=== PATIENT | female | born 1950 | race Caucasian/White ===

== ENCOUNTER 2022-10-05 13:25 | Inpatient (IN) | payer MEDICARE, MEDICAID ==
--- NOTE | 2022-10-05 13:27 | ERPHSYRPT ---
- History of Present Illness Time Seen by Provider: 10/05/22 13:27 Source: patient Exam Limitations: no limitations Physician History: This is an obese 72-year-old white female patient who does not see a primary care provider of any type and has no known medical illnesses other than an allergy to penicillin and presents via EMS with hypertension and shortness of air. Patient states that she has been sick for approximately a week. She has been coughing. She has been exposed to an individual in her home that has flulike symptoms. Patient does ache all over. She has not measured her temperature but does not think she has had a fever. EMS brought her into the e mergency department and they placed Nitropaste on her to bring her blood pressure down to systolic range of 170s. She had a room air oxygenation level on EMS arrival in the 80s. She was also tachycardic. In route to the emergency department, the patient received Nitropaste to the chest, intravenous Solu- Medrol, DuoNeb nebulizer treatment as well as second treatment of Ventolin nebulizer. She is placed on 2 L of oxygen and her oxygenation saturation level is approximately 94 to 96%. Patient denies chest pain. She has no abdominal pain. She has had no vomiting or diarrhea symptoms. I obtained additional history from the paramedics. Patient does smoke 1 pack of cigarettes a day. We did discuss her tobacco abuse and methods to aid in smoking cessation. Timing/Duration: week(s) (1) Activities at Onset: none Severity of Dyspnea-Max: moderate Severity of Dyspnea-Current: moderate Possible Cause: no prior episodes Modifying Factors: Improves With: coughing, exertion (Worsened), oxygen (Improved) Associated Symptoms: cough, wheezing, No chest pain/discomfort Allergies/Adverse Reactions: Penicillins Allergy (Verified 10/05/22 13:28) Home Medications: No Reportable Medications [No Reported Medications] 10/05/22 [History] Travel Risk - International Travel Have you traveled outside of the country in past 3 weeks: No - Coronavirus Screening Symptoms: Cough: New Onset, Shortness of Breath Close contact with a COVID-19 positive Pt in past 14-21 Days: No - Review of Systems Constitutional: Weakness Eyes: No Symptoms Ears, Nose, & Throat: No Symptoms Respiratory: Cough, Dyspnea, Wheezing Cardiac: No Symptoms Abdominal/Gastrointestinal: No Symptoms Genitourinary Symptoms: No Symptoms Musculoskeletal: Arthralgias, Myalgias Skin: No Symptoms Neurological: No Symptoms Psychological: No Symptoms Endocrine: No Symptoms Hematologic/Lymphatic: No Symptoms Immunological/Allergic: No Symptoms All Other Systems: Reviewed and Negative - Past Medical History Pertinent Past Medical History: No - Nursing Vital Signs Nursing Vital Signs: Initial Vital Signs Temperature 98.1 F 10/05/22 13:29 Pulse Rate 94 H 10/05/22 13:29 Respiratory Rate 30 H 10/05/22 13:29 Blood Pressure 172/79 10/05/22 13:29 O2 Sat by Pulse Oximetry 98 10/05/22 13:29 Pain Scale Pain Intensity 4 - Physical Exam General Appearance: moderate distress, alert, anxiety, obese Eye Exam: PERRL/EOMI, eyes nml inspection Ears, Nose, Throat Exam: hearing grossly normal, normal ENT inspection, normal pharynx Neck Exam: normal inspection, non-tender, supple, full range of motion Respiratory Exam: respiratory distress, accessory muscle use, crackles/rales, rhonchi, wheezing, No chest tenderness Cardiovascular/Chest Exam: tachycardia Abdominal/Gastrointestinal Exam: soft, normal bowel sounds, No tenderness Rectal Exam: not done Extremity Exam: non-tender, normal range of motion, pedal edema (Bilateral feet and ankle) Neurologic Exam: alert, oriented x 3, cooperative, chief client officer II-XII nml as tested, sensation nml Skin Exam: normal color, warm, dry Lymphatic Exam: adenopathy SpO2 Interpretation: borderline oxygenation O2 Delivery: Nasal Cannula (2 L oxygen) - Course EKG Interpreted by Me: RATE (158), SVT, NORMAL AXIS, NORMAL INTERVALS, NORMAL QRS, NORMAL ST-T, Other (No acute ischemic changes.) Ordered Tests: Active Orders 24 hr Category Date Time Status EKG-ER Only STAT Care 10/05/22 13:37 Active EKG-ER Only STAT Care 10/05/22 14:23 Active IV Insertion STAT Care 10/05/22 13:37 Active Oxygen-ED Only Nasal Cannula 2 lpm Care 10/05/22 13:37 Active CHEST 1 VIEW (PORTABLE) Stat Exams 10/05/22 13:37 Completed CHEST WITH CONTRAST [CT] Stat Exams 10/05/22 15:43 Completed ABG [ARTERIAL BLOOD GASES] Urgent Lab 10/05/22 13:50 Completed BLOOD CULTURE Stat Lab 10/05/22 14:00 Received CBC W DIFF Stat Lab 10/05/22 14:00 Completed CMP Stat Lab 10/05/22 14:00 Completed D-DIMER QUANTITATIVE Stat Lab 10/05/22 14:00 Completed Lactic Acid Stat Lab 10/05/22 13:50 Completed Whitman Screen Stat Lab 10/05/22 14:00 Completed NT PRO BNP Stat Lab 10/05/22 14:00 Completed TROPONIN Q4H Lab 10/05/22 14:00 Completed TROPONIN Q4H Lab 10/05/22 17:45 Ordered TROPONIN Q4H Lab 10/05/22 21:45 Ordered Transfer Order Routine Transfer 10/05/22 Ordered Medication Summary Generic Name Dose Route Start Last Admin Trade Name Freq PRN Reason Stop Dose Admin Sodium Chloride 500 mls @ 50 mls/hr 10/05/22 15:15 10/05/22 15:57 Sodium Chloride 0.9% 500 Ml IV 11/04/22 15:14 50 mls/hr .Q10H JONATHAN Administration Ceftriaxone Sodium/Dextrose 1 g in 50 mls @ 100 mls/hr 10/05/22 16:47 10/05/22 16:49 Rocephin 1 Gm-D5w 50 Ml Bag IV 10/05/22 17:16 100 mls/hr STAT STA 100 mls/hr Administration Discontinued Medications Generic Name Dose Route Start Last Admin Trade Name Freq PRN Reason Stop Dose Admin Furosemide 40 mg 10/05/22 15:11 10/05/22 15:57 Furosemide 40 Mg/4 Ml Vial IV 10/05/22 15:12 40 mg STAT ONE Administration Furosemide Confirm 10/05/22 15:55 Furosemide 40 Mg/4 Ml Vial Administered 10/05/22 15:56 Dose 40 mg .ROUTE .STK-MED ONE Ceftriaxone Sodium/Dextrose Confirm 10/05/22 16:49 Rocephin 1 Gm-D5w 50 Ml Bag Administered 10/05/22 16:50 Dose 1 g in 50 mls @ ud IV .STK-MED ONE Metoprolol Tartrate 2.5 mg 10/05/22 13:37 10/05/22 14:05 Metoprolol Tartrate 5 Mg/5 Ml Vial IV 10/05/22 13:38 Not Given STAT ONE Metoprolol Tartrate 5 mg 10/05/22 13:51 10/05/22 15:52 Metoprolol Tartrate 5 Mg/5 Ml Vial IV 10/05/22 13:52 Not Given STAT ONE Metoprolol Tartrate Confirm 10/05/22 13:54 Metoprolol Tartrate 5 Mg/5 Ml Vial Administered 10/05/22 13:55 Dose 5 mg IV .STK-MED ONE Potassium Chloride 20 meq 10/05/22 15:10 10/05/22 15:56 Potassium Chloride Tab 10 Meq Tab PO 10/05/22 15:11 20 meq STAT ONE Administration Potassium Chloride Confirm 10/05/22 15:55 Potassium Chloride Tab 10 Meq Tab Administered 10/05/22 15:56 Dose 20 meq PO .STK-MED ONE Lab/Rad Data: Laboratory Result Diagrams 10/05/22 14:00 10/05/22 14:00 Laboratory Results 10/05/22 10/05/22 10/05/22 Range/Units 14:00 14:00 14:00 WBC (4.0-10.5) x10^3/uL RBC (4.1-5.4) x10^6/uL Hgb (12.0-16.0) g/dL Hct (35-47) % MCV (78-100) fL MCH (26-32) pg MCHC (32-36) g/dL RDW (11.5-14.0) % Plt Count (150-450) x10^3/uL MPV (7.5-11.0) fL Gran % (36.0-66.0) % Immature Gran % (Auto) (0.00-0.4) % Nucleat RBC Rel Count (0.00-0.1) % Eos # (Auto) (0-0.5) x10^3/uL Immature Gran # (Auto) (0.00-0.03) x10^3u/L Absolute Lymphs (auto) (1.0-4.6) x10^3/uL Absolute Monos (auto) (0.0-1.3) x10^3/uL Absolute Nucleated RBC (0.00-0.01) x10^3u/L Lymphocytes % (24.0-44.0) % Monocytes % (0.0-12.0) % Eosinophils % (0.00-5.0) % Basophils % (0.0-0.4) % Absolute Granulocytes (1.4-6.9) x10^3/uL Basophils # (0-0.4) x10^3/uL D-Dimer (0.0-0.50) mg/L Puncture Site pCO2 (35-45) mmHg pO2 (75-100) mmHg Base Excess (-2.0-2.0) O2 Saturation (94-100) g/dF ABG pH (7.35-7.45) ABG HCO3 (22-28) ABG O2 Sat (Measured) (95-100) % Joel Test A-a Gradient a/A Ratio Hemoglobin Carboxyhemoglobin (0.0-6.9) % THgb Methemoglobin (1.4-1.5) % Potassium (3.5-5.1) Temperature C POC O2 Flow Rate % Sodium (137-145) mmol/L Chloride (98-107) mmol/L Carbon Dioxide (22-30) mmol/L Anion Gap (5-15) MEQ/L BUN (7-17) mg/dL Creatinine (0.52-1.04) mg/dL Estimated GFR ML/MIN Glucose (74-106) mg/dL Lactic Acid (0.4-2.0) Calcium (8.4-10.2) mg/dL Total Bilirubin (0.2-1.3) mg/dL AST (14-36) U/L ALT (0-35) U/L Alkaline Phosphatase (38-126) U/L Troponin I < 0.012 (0.000-0.034) ng/mL NT-Pro-B Natriuret Pep (0-900) pg/mL Serum Total Protein (6.3-8.2) g/dL Albumin (3.5-5.0) g/dL Monoscreen NEGATIVE (Negative) Influenza Type A Ag POSITIVE (NEGATIVE) Influenza Type B Ag NEGATIVE (NEGATIVE) RSV (PCR) NEGATIVE (Negative) SARS-CoV-2 (PCR) NEGATIVE (NEGATIVE) Group A Strep Antibody (NEGATIVE) 10/05/22 10/05/22 10/05/22 Range/Units 14:00 14:00 14:00 WBC 7.5 (4.0-10.5) x10^3/uL RBC 4.65 (4.1-5.4) x10^6/uL Hgb 14.2 (12.0-16.0) g/dL Hct 46.2 (35-47) % MCV 99.4 (78-100) fL MCH 30.5 (26-32) pg MCHC 30.7 L (32-36) g/dL RDW 12.6 (11.5-14.0) % Plt Count 157 (150-450) x10^3/uL MPV 10.3 (7.5-11.0) fL Gran % 66.8 H (36.0-66.0) % Immature Gran % (Auto) 0.3 (0.00-0.4) % Nucleat RBC Rel Count 0.0 (0.00-0.1) % Eos # (Auto) 0 (0-0.5) x10^3/uL Immature Gran # (Auto) 0.02 (0.00-0.03) x10^3u/L Absolute Lymphs (auto) 1.67 (1.0-4.6) x10^3/uL Absolute Monos (auto) 0.77 (0.0-1.3) x10^3/uL Absolute Nucleated RBC 0.00 (0.00-0.01) x10^3u/L Lymphocytes % 22.3 L (24.0-44.0) % Monocytes % 10.3 (0.0-12.0) % Eosinophils % 0.0 (0.00-5.0) % Basophils % 0.3 (0.0-0.4) % Absolute Granulocytes 5.02 (1.4-6.9) x10^3/uL Basophils # 0.02 (0-0.4) x10^3/uL D-Dimer 0.75 H* (0.0-0.50) mg/L Puncture Site pCO2 (35-45) mmHg pO2 (75-100) mmHg Base Excess (-2.0-2.0) O2 Saturation (94-100) g/dF ABG pH (7.35-7.45) ABG HCO3 (22-28) ABG O2 Sat (Measured) (95-100) % Joel Test A-a Gradient a/A Ratio Hemoglobin Carboxyhemoglobin (0.0-6.9) % THgb Methemoglobin (1.4-1.5) % Potassium 3.5 (3.5-5.1) Temperature C POC O2 Flow Rate % Sodium 134 L (137-145) mmol/L Chloride 102 (98-107) mmol/L Carbon Dioxide 23 (22-30) mmol/L Anion Gap 11.8 (5-15) MEQ/L BUN 10 (7-17) mg/dL Creatinine 0.66 (0.52-1.04) mg/dL Estimated GFR > 60.0 ML/MIN Glucose 127 H (74-106) mg/dL Lactic Acid (0.4-2.0) Calcium 8.2 L (8.4-10.2) mg/dL Total Bilirubin 0.50 (0.2-1.3) mg/dL AST 35 (14-36) U/L ALT 21 (0-35) U/L Alkaline Phosphatase 136 H (38-126) U/L Troponin I (0.000-0.034) ng/mL NT-Pro-B Natriuret Pep 1020 H (0-900) pg/mL Serum Total Protein 7.4 (6.3-8.2) g/dL Albumin 4.1 (3.5-5.0) g/dL Monoscreen (Negative) Influenza Type A Ag (NEGATIVE) Influenza Type B Ag (NEGATIVE) RSV (PCR) (Negative) SARS-CoV-2 (PCR) (NEGATIVE) Group A Strep Antibody (NEGATIVE) 10/05/22 10/05/22 10/05/22 Range/Units 13:50 13:50 13:38 WBC (4.0-10.5) x10^3/uL RBC (4.1-5.4) x10^6/uL Hgb (12.0-16.0) g/dL Hct (35-47) % MCV (78-100) fL MCH (26-32) pg MCHC (32-36) g/dL RDW (11.5-14.0) % Plt Count (150-450) x10^3/uL MPV (7.5-11.0) fL Gran % (36.0-66.0) % Immature Gran % (Auto) (0.00-0.4) % Nucleat RBC Rel Count (0.00-0.1) % Eos # (Auto) (0-0.5) x10^3/uL Immature Gran # (Auto) (0.00-0.03) x10^3u/L Absolute Lymphs (auto) (1.0-4.6) x10^3/uL Absolute Monos (auto) (0.0-1.3) x10^3/uL Absolute Nucleated RBC (0.00-0.01) x10^3u/L Lymphocytes % (24.0-44.0) % Monocytes % (0.0-12.0) % Eosinophils % (0.00-5.0) % Basophils % (0.0-0.4) % Absolute Granulocytes (1.4-6.9) x10^3/uL Basophils # (0-0.4) x10^3/uL D-Dimer (0.0-0.50) mg/L Puncture Site LEFT RADIAL pCO2 38 (35-45) mmHg pO2 87 (75-100) mmHg Base Excess -1.7 (-2.0-2.0) O2 Saturation 95.6 (94-100) g/dF ABG pH 7.39 (7.35-7.45) ABG HCO3 23.0 (22-28) ABG O2 Sat (Measured) 98.9 (95-100) % Joel Test YES A-a Gradient 65 a/A Ratio 0.57 Hemoglobin 14.8 Carboxyhemoglobin 2.0 (0.0-6.9) % THgb Methemoglobin 1.2 L (1.4-1.5) % Potassium 3.3 L (3.5-5.1) Temperature 37.0 C POC O2 Flow Rate 28 % Sodium (137-145) mmol/L Chloride (98-107) mmol/L Carbon Dioxide (22-30) mmol/L Anion Gap (5-15) MEQ/L BUN (7-17) mg/dL Creatinine (0.52-1.04) mg/dL Estimated GFR ML/MIN Glucose (74-106) mg/dL Lactic Acid 1.8 (0.4-2.0) Calcium (8.4-10.2) mg/dL Total Bilirubin (0.2-1.3) mg/dL AST (14-36) U/L ALT (0-35) U/L Alkaline Phosphatase (38-126) U/L Troponin I (0.000-0.034) ng/mL NT-Pro-B Natriuret Pep (0-900) pg/mL Serum Total Protein (6.3-8.2) g/dL Albumin (3.5-5.0) g/dL Monoscreen (Negative) Influenza Type A Ag (NEGATIVE) Influenza Type B Ag (NEGATIVE) RSV (PCR) (Negative) SARS-CoV-2 (PCR) (NEGATIVE) Group A Strep Antibody NOT DETECTED (NEGATIVE) - Progress Progress: improved, re-examined Air Movement: fair Progress Note: 10/05/22 14:12 Chest x-ray shows a hyperinflated nonacute chest. Blood Culture(s) Obtained: Yes Antibiotics given: Yes Discussed with : Yeni Counseled pt/family regarding: lab results, diagnosis, rad results, smoking cessation - Departure Departure Disposition: Observation Clinical Impression: Influenza A H1N1 infection, Hypoxia, Tachycardia, Pulmonary infiltrate in left lung on chest x-ray Condition: Fair Critical Care Time: Yes Critical Care Time(excluding separately billable procedures): Critical 30-74 mins (40 minutes) Referrals: MALGORZATA [facility] [employer] [Primary Care Provider] - Follow up/PCP as directed
[2022-10-05] MEDS ORDERED: LOPRESSOR INJECTION IV ONE ×2 (13:37→13:54)
[2022-10-05] MEDS: LOPRESSOR INJECTION IV ONE ×2 (13:55→15:52)
[2022-10-05 13:58] LABS: A-aADO2 65; ABG HEMOGLOBIN 14.8; ABG POTASSIUM 3.3 (3.5-5.1); ARTERIAL BLD GAS O2 SATURATION 98.9 % (95-100); ARTERIAL BLOOD GAS BASE EXCESS -1.7 (-2.0-2.0); ARTERIAL BLOOD GAS FIO2 28 %; ARTERIAL BLOOD GAS PCO2 38 mmHg (35-45); ARTERIAL BLOOD GAS PO2 87 mmHg (75-100); ARTERIAL BLOOD GAS pH 7.39 (7.35-7.45); HGB O2 SAT 95.6 g/dF (94-100); Methhemoglobin 1.2 % (1.4-1.5)
[2022-10-05 13:59] LABS: ABG SITE LEFT RADIAL; ALLEN TEST OK? YES
[2022-10-05 14:09] LABS: Absolute Neutrophil Ct (ANC) 5.02 x10^3/uL (1.4-6.9); Basophil (Absolute #) 0.02 x10^3/uL (0-0.4); Eosinophil (Absolute #) 0 x10^3/uL (0-0.5); Hematocrit 46.2 % (35-47); Hemoglobin 14.2 g/dL (12.0-16.0); Lymphocyte (Absolute #) 1.67 x10^3/uL (1.0-4.6); Lymphocytes % 22.3 % (24.0-44.0); Mean Cell Volume 99.4 fL (78-100); Mean Corpuscular Hemoglobin 30.5 pg (26-32); Mean Corpuscular Hgb Concent. 30.7 g/dL (32-36); Mean Platelet Volume 10.3 fL (7.5-11.0); Monocyte (Absolute #) 0.77 x10^3/uL (0.0-1.3); Monocytes % 10.3 % (0.0-12.0); Neutrophil % 66.8 % (36.0-66.0); Platelet Count 157 x10^3/uL (150-450); Red Blood Count 4.65 x10^6/uL (4.1-5.4); Red Cell Distribution Width 12.6 % (11.5-14.0); White Blood Count 7.5 x10^3/uL (4.0-10.5)
--- NOTE | 2022-10-05 14:11 | XRAY ---
Indication: Cough and short of breath. Comparison: None Portable chest hyperinflated and clear with incidental tiny calcified granulomas. Heart not enlarged with incidental small mediastinal/bilateral hilar calcified nodes. Bony thorax intact with mild osteopenia and degenerative changes. Impression: Nonacute hyperinflated chest with chronic findings.
[2022-10-05 14:37] LABS: ALBUMIN 4.1 g/dL (3.5-5.0); ALKALINE PHOSPHATASE 136 U/L (38-126); ANION GAP 11.8 MEQ/L (5-15); BLOOD UREA NITROGEN 10 mg/dL (7-17); CHLORIDE 102 mmol/L (98-107); Calcium 8.2 mg/dL (8.4-10.2); Carbon Dioxide 23 mmol/L (22-30); Creatinine 1 0.66 mg/dL (0.52-1.04); EST GLOMERULAR FILTRATION RATE > 60.0 ML/MIN; Glucose 127 mg/dL (74-106); NT PRO BNP 1020 pg/mL (0-900); Potassium 3.5 mmol/L (3.5-5.1); SGOT/AST 35 U/L (14-36); SGPT/ALT 21 U/L (0-35); SODIUM 134 mmol/L (137-145); Total Protein 7.4 g/dL (6.3-8.2)
[2022-10-05 14:51] LABS: INFLUENZA B NEGATIVE (NEGATIVE); RESPIRATORY SYNCTIAL VIRUS NEGATIVE (Negative); SARS-CoV-2 Xpert Express NEGATIVE (NEGATIVE)
[2022-10-05 15:07] LABS: INFLUENZA A POSITIVE (NEGATIVE)
[2022-10-05] MEDS ORDERED: Klor Con PO ONE ×2 (15:10→15:55)
[2022-10-05] MEDS ORDERED: Lasix 40 MG/4 ML IV ONE (15:11)
[2022-10-05] MEDS ORDERED: Sodium Chloride 0.9% 500 ML 500 ML IV SCH (15:15)
[2022-10-05] MEDS ORDERED: Lasix 40 MG/4 ML ONE (15:55)
[2022-10-05] MEDS ORDERED: Sodium Chloride 0.9% 500 ML 500 ML IV ONE (15:56)
--- NOTE | 2022-10-05 16:25 | XRAY ---
Indication: Short of breath. Positive flu. Elevated d-dimer. Multiple contiguous axial images obtained through the chest using 100 cc Isovue 370 contrast and PE protocol. Comparison: None Adequate opacification of the pulmonary arteries. No pulmonary embolus. Heart not enlarged. Aorta minimally arteriosclerotic without aneurysm/dissection. Small mediastinal and bilateral hilar calcified nodes. No pathologic mediastinal/hilar lymphadenopathy. Lungs hyperinflated with a few bilateral calcified granulomas, largest inferior right upper lobe measuring 1 cm. Left lower lobe demonstrates minimal/mild patchy airspace disease without effusion. Bony thorax intact with osteopenia and flowing osteophytes throughout the spine. Limited upper abdomen demonstrates mild diffuse fatty liver and mild distended gallbladder with at least 2 gallstones, largest 1.5 cm. Impression: 1. Negative pulmonary embolus. 2. Minimal/mild patchy left lower lobe airspace disease without effusion. 3. Incidental distended gallbladder with gallstones. 3. Chronic findings including fatty liver, chronic bony findings, and old granulomatous disease.
[2022-10-05] MEDS ORDERED: ROCEPHIN 1 Gm-D5w 50 ml Bag** 1 G/50 ML IVPB IV STA (16:47)
[2022-10-05] MEDS ORDERED: ROCEPHIN 1 Gm-D5w 50 ml Bag** 1 G/50 ML IVPB IV ONE (16:49)
[2022-10-05] MEDS ORDERED: Zofran 4 MG/2 ML VIAL IV PRN (17:06)
[2022-10-05] MEDS ORDERED: PROVENTIL 2.5 MG/3 ML NEB IH ONE (17:31)
[2022-10-05] MEDS ORDERED: PROVENTIL 2.5 MG/3 ML NEB IH PRN (17:49)
[2022-10-05] MEDS: PROVENTIL 2.5 MG/3 ML NEB IH SCH (17:50)
[2022-10-05] MEDS ORDERED: TRANDATE 20 MG/4 ML SYRINGE IV PRN (18:24)
[2022-10-05] MEDS: TYLENOL 325 MG PO PRN (18:44)
[2022-10-05] MEDS: NORVASC 5 MG PO SCH (18:44)
[2022-10-05] MEDS: Nicoderm CQ 21 MG TOP SCH (18:44)
[2022-10-05] MEDS: Zithromax 500 MG/ 250 ML NaCl Premix 500 MG/250 ML IVPB IV SCH (18:45)
[2022-10-05] MEDS: Ativan 1 MG PO PRN (20:22)
[2022-10-05] MEDS: solu-MEDROL 80 MG, Sterile H2O 10 ml 2 ML IV SCH ×2 (21:00)
[2022-10-06] MEDS: TYLENOL 325 MG PO PRN (03:24)
[2022-10-06 05:14] LABS: Hematocrit 42.4 % (35-47); Hemoglobin 13.7 g/dL (12.0-16.0); Mean Cell Volume 92.6 fL (78-100); Mean Corpuscular Hemoglobin 29.9 pg (26-32); Mean Corpuscular Hgb Concent. 32.3 g/dL (32-36); Mean Platelet Volume 10.5 fL (7.5-11.0); Platelet Count 164 x10^3/uL (150-450); Red Blood Count 4.58 x10^6/uL (4.1-5.4); Red Cell Distribution Width 12.5 % (11.5-14.0); White Blood Count 5.4 x10^3/uL (4.0-10.5)
[2022-10-06] MEDS: Sodium Chloride 0.9% 1000 ML 1,000 ML IV SCH ×2 (05:40→21:53)
[2022-10-06] MEDS: solu-MEDROL 80 MG, Sterile H2O 10 ml 2 ML IV SCH ×8 (05:41→21:40)
[2022-10-06 05:59] LABS: ALBUMIN 3.9 g/dL (3.5-5.0); ALKALINE PHOSPHATASE 123 U/L (38-126); ANION GAP 9.3 MEQ/L (5-15); BLOOD UREA NITROGEN 13 mg/dL (7-17); CHLORIDE 101 mmol/L (98-107); Calcium 8.2 mg/dL (8.4-10.2); Carbon Dioxide 29 mmol/L (22-30); Creatinine 1 0.62 mg/dL (0.52-1.04); EST GLOMERULAR FILTRATION RATE > 60.0 ML/MIN; Glucose 136 mg/dL (74-106); NT PRO BNP 500 pg/mL (0-900); Potassium 3.6 mmol/L (3.5-5.1); SGOT/AST 34 U/L (14-36); SGPT/ALT 21 U/L (0-35); SODIUM 136 mmol/L (137-145); Total Protein 7.1 g/dL (6.3-8.2)
[2022-10-06] MEDS: PROVENTIL 2.5 MG/3 ML NEB IH SCH ×3 (07:35→18:29)
--- NOTE | 2022-10-06 10:18 | PCM.HP ---
History of Present Illness - Chief Complaint Chief Complaint: Influenza, hypoxia, pneumonia left lung History of Present Illness: is a 72 year old female admitted with a week history of cough and feeling short of breath, she has continued to worsen over the past week. she has no physician and is currently under no care. she is a longstanding smoker. - Review of Systems Constitutional: No Fever, No Chills Respiratory: Cough, Short Of Breath Cardiac: No Chest Pain, No Edema, No Syncope Abdominal/Gastrointestinal: No Abdominal Pain, No Nausea, No Vomiting, No Diarrhea Genitourinary Symptoms: No Dysuria All Other Systems: Reviewed and Negative Medications & Allergies Home Medications: Home Medication List No Reportable Medications [No Reported Medications] 10/05/22 [History Confirmed 10/05/22] Allergies/Adverse Reactions: Allergies Allergy/AdvReac Type Severity Reaction Status Date / Time Penicillins Allergy Verified 10/05/22 17:35 - Past Medical History Past Medical History: Yes Neurological History: TIA Cardiac History: Hypertension Respiratory History: Asthma GI Medical History: No Pertinent History Pyscho-Social History: Anxiety, Depression Reproductive Disorders: No Pertinent History Comment: Psoriasis - Female History Are you now?: No - Past Surgical History Past Surgical History: Yes Female Surgical History: Tubal Ligation - Social History Smoking Status: Current every day smoker How long have you smoked: 38 y.o. Exposure to second hand smoke: No Alcohol: None Drug Use: none - Physical Exam Vital Signs: Vital Signs - 24 hr Temp Pulse Resp BP Pulse Ox 10/06/22 07:39 80 22 90 L 10/06/22 07:09 96.9 F 81 24 144/82 92 L 10/06/22 03:55 97.8 F 83 24 144/95 100 10/05/22 23:35 98.4 F 120 H 26 H 164/72 98 10/05/22 19:48 98.5 F 83 26 H 140/63 93 L 10/05/22 17:52 86 24 94 L 10/05/22 17:26 98.9 F 81 16 181/86 95 10/05/22 17:25 98.9 F 81 19 181/86 95 10/05/22 17:10 98.1 F 82 32 H 163/72 94 L 10/05/22 16:00 82 29 H 163/72 95 10/05/22 15:26 87 28 H 157/68 96 10/05/22 13:29 98.1 F 94 H 30 H 172/79 98 General Appearance: no apparent distress, alert Neurologic Exam: alert, cooperative Respiratory Exam: prolonged expirations, wheezing Cardiovascular Exam: regular rate/rhythm, normal heart sounds, normal peripheral pulses Gastrointestinal/Abdomen Exam: soft, normal bowel sounds, No tenderness, No mass Extremity Exam: normal inspection, normal range of motion, pelvis stable Skin Exam: normal color, warm, dry, No rash Results - Labs Lab/Micro Results: Lab Results-Last 24 Hours 10/05/22 10/05/22 10/05/22 Range/Units 13:38 13:50 13:50 WBC (4.0-10.5) x10^3/uL RBC (4.1-5.4) x10^6/uL Hgb (12.0-16.0) g/dL Hct (35-47) % MCV (78-100) fL MCH (26-32) pg MCHC (32-36) g/dL RDW (11.5-14.0) % Plt Count (150-450) x10^3/uL MPV (7.5-11.0) fL Gran % (36.0-66.0) % Immature Gran % (Auto) (0.00-0.4) % Nucleat RBC Rel Count (0.00-0.1) % Eos # (Auto) (0-0.5) x10^3/uL Immature Gran # (Auto) (0.00-0.03) x10^3u/L Absolute Lymphs (auto) (1.0-4.6) x10^3/uL Absolute Monos (auto) (0.0-1.3) x10^3/uL Absolute Nucleated RBC (0.00-0.01) x10^3u/L Lymphocytes % (24.0-44.0) % Monocytes % (0.0-12.0) % Eosinophils % (0.00-5.0) % Basophils % (0.0-0.4) % Absolute Granulocytes (1.4-6.9) x10^3/uL Basophils # (0-0.4) x10^3/uL D-Dimer (0.0-0.50) mg/L Puncture Site LEFT RADIAL pCO2 38 (35-45) mmHg pO2 87 (75-100) mmHg Base Excess -1.7 (-2.0-2.0) O2 Saturation 95.6 (94-100) g/dF ABG pH 7.39 (7.35-7.45) ABG HCO3 23.0 (22-28) ABG O2 Sat (Measured) 98.9 (95-100) % Joel Test YES A-a Gradient 65 a/A Ratio 0.57 Hemoglobin 14.8 Carboxyhemoglobin 2.0 (0.0-6.9) % THgb Methemoglobin 1.2 L (1.4-1.5) % Potassium 3.3 L (3.5-5.1) Temperature 37.0 C POC O2 Flow Rate 28 % Sodium (137-145) mmol/L Chloride (98-107) mmol/L Carbon Dioxide (22-30) mmol/L Anion Gap (5-15) MEQ/L BUN (7-17) mg/dL Creatinine (0.52-1.04) mg/dL Estimated GFR ML/MIN Glucose (74-106) mg/dL Lactic Acid 1.8 (0.4-2.0) Calcium (8.4-10.2) mg/dL Total Bilirubin (0.2-1.3) mg/dL AST (14-36) U/L ALT (0-35) U/L Alkaline Phosphatase (38-126) U/L Troponin I (0.000-0.034) ng/mL NT-Pro-B Natriuret Pep (0-900) pg/mL Serum Total Protein (6.3-8.2) g/dL Albumin (3.5-5.0) g/dL Monoscreen (Negative) Influenza Type A Ag (NEGATIVE) Influenza Type B Ag (NEGATIVE) RSV (PCR) (Negative) SARS-CoV-2 (PCR) (NEGATIVE) Group A Strep Antibody NOT DETECTED (NEGATIVE) 10/05/22 10/05/22 10/05/22 Range/Units 14:00 14:00 14:00 WBC 7.5 (4.0-10.5) x10^3/uL RBC 4.65 (4.1-5.4) x10^6/uL Hgb 14.2 (12.0-16.0) g/dL Hct 46.2 (35-47) % MCV 99.4 (78-100) fL MCH 30.5 (26-32) pg MCHC 30.7 L (32-36) g/dL RDW 12.6 (11.5-14.0) % Plt Count 157 (150-450) x10^3/uL MPV 10.3 (7.5-11.0) fL Gran % 66.8 H (36.0-66.0) % Immature Gran % (Auto) 0.3 (0.00-0.4) % Nucleat RBC Rel Count 0.0 (0.00-0.1) % Eos # (Auto) 0 (0-0.5) x10^3/uL Immature Gran # (Auto) 0.02 (0.00-0.03) x10^3u/L Absolute Lymphs (auto) 1.67 (1.0-4.6) x10^3/uL Absolute Monos (auto) 0.77 (0.0-1.3) x10^3/uL Absolute Nucleated RBC 0.00 (0.00-0.01) x10^3u/L Lymphocytes % 22.3 L (24.0-44.0) % Monocytes % 10.3 (0.0-12.0) % Eosinophils % 0.0 (0.00-5.0) % Basophils % 0.3 (0.0-0.4) % Absolute Granulocytes 5.02 (1.4-6.9) x10^3/uL Basophils # 0.02 (0-0.4) x10^3/uL D-Dimer 0.75 H* (0.0-0.50) mg/L Puncture Site pCO2 (35-45) mmHg pO2 (75-100) mmHg Base Excess (-2.0-2.0) O2 Saturation (94-100) g/dF ABG pH (7.35-7.45) ABG HCO3 (22-28) ABG O2 Sat (Measured) (95-100) % Joel Test A-a Gradient a/A Ratio Hemoglobin Carboxyhemoglobin (0.0-6.9) % THgb Methemoglobin (1.4-1.5) % Potassium 3.5 (3.5-5.1) Temperature C POC O2 Flow Rate % Sodium 134 L (137-145) mmol/L Chloride 102 (98-107) mmol/L Carbon Dioxide 23 (22-30) mmol/L Anion Gap 11.8 (5-15) MEQ/L BUN 10 (7-17) mg/dL Creatinine 0.66 (0.52-1.04) mg/dL Estimated GFR > 60.0 ML/MIN Glucose 127 H (74-106) mg/dL Lactic Acid (0.4-2.0) Calcium 8.2 L (8.4-10.2) mg/dL Total Bilirubin 0.50 (0.2-1.3) mg/dL AST 35 (14-36) U/L ALT 21 (0-35) U/L Alkaline Phosphatase 136 H (38-126) U/L Troponin I (0.000-0.034) ng/mL NT-Pro-B Natriuret Pep 1020 H (0-900) pg/mL Serum Total Protein 7.4 (6.3-8.2) g/dL Albumin 4.1 (3.5-5.0) g/dL Monoscreen (Negative) Influenza Type A Ag (NEGATIVE) Influenza Type B Ag (NEGATIVE) RSV (PCR) (Negative) SARS-CoV-2 (PCR) (NEGATIVE) Group A Strep Antibody (NEGATIVE) 10/05/22 10/05/22 10/05/22 Range/Units 14:00 14:00 14:00 WBC (4.0-10.5) x10^3/uL RBC (4.1-5.4) x10^6/uL Hgb (12.0-16.0) g/dL Hct (35-47) % MCV (78-100) fL MCH (26-32) pg MCHC (32-36) g/dL RDW (11.5-14.0) % Plt Count (150-450) x10^3/uL MPV (7.5-11.0) fL Gran % (36.0-66.0) % Immature Gran % (Auto) (0.00-0.4) % Nucleat RBC Rel Count (0.00-0.1) % Eos # (Auto) (0-0.5) x10^3/uL Immature Gran # (Auto) (0.00-0.03) x10^3u/L Absolute Lymphs (auto) (1.0-4.6) x10^3/uL Absolute Monos (auto) (0.0-1.3) x10^3/uL Absolute Nucleated RBC (0.00-0.01) x10^3u/L Lymphocytes % (24.0-44.0) % Monocytes % (0.0-12.0) % Eosinophils % (0.00-5.0) % Basophils % (0.0-0.4) % Absolute Granulocytes (1.4-6.9) x10^3/uL Basophils # (0-0.4) x10^3/uL D-Dimer (0.0-0.50) mg/L Puncture Site pCO2 (35-45) mmHg pO2 (75-100) mmHg Base Excess (-2.0-2.0) O2 Saturation (94-100) g/dF ABG pH (7.35-7.45) ABG HCO3 (22-28) ABG O2 Sat (Measured) (95-100) % Joel Test A-a Gradient a/A Ratio Hemoglobin Carboxyhemoglobin (0.0-6.9) % THgb Methemoglobin (1.4-1.5) % Potassium (3.5-5.1) Temperature C POC O2 Flow Rate % Sodium (137-145) mmol/L Chloride (98-107) mmol/L Carbon Dioxide (22-30) mmol/L Anion Gap (5-15) MEQ/L BUN (7-17) mg/dL Creatinine (0.52-1.04) mg/dL Estimated GFR ML/MIN Glucose (74-106) mg/dL Lactic Acid (0.4-2.0) Calcium (8.4-10.2) mg/dL Total Bilirubin (0.2-1.3) mg/dL AST (14-36) U/L ALT (0-35) U/L Alkaline Phosphatase (38-126) U/L Troponin I < 0.012 (0.000-0.034) ng/mL NT-Pro-B Natriuret Pep (0-900) pg/mL Serum Total Protein (6.3-8.2) g/dL Albumin (3.5-5.0) g/dL Monoscreen NEGATIVE (Negative) Influenza Type A Ag POSITIVE (NEGATIVE) Influenza Type B Ag NEGATIVE (NEGATIVE) RSV (PCR) NEGATIVE (Negative) SARS-CoV-2 (PCR) NEGATIVE (NEGATIVE) Group A Strep Antibody (NEGATIVE) 10/05/22 10/05/22 10/06/22 Range/Units 18:20 20:35 04:50 WBC 5.4 (4.0-10.5) x10^3/uL RBC 4.58 (4.1-5.4) x10^6/uL Hgb 13.7 (12.0-16.0) g/dL Hct 42.4 (35-47) % MCV 92.6 D (78-100) fL MCH 29.9 (26-32) pg MCHC 32.3 (32-36) g/dL RDW 12.5 (11.5-14.0) % Plt Count 164 (150-450) x10^3/uL MPV 10.5 (7.5-11.0) fL Gran % (36.0-66.0) % Immature Gran % (Auto) (0.00-0.4) % Nucleat RBC Rel Count (0.00-0.1) % Eos # (Auto) (0-0.5) x10^3/uL Immature Gran # (Auto) (0.00-0.03) x10^3u/L Absolute Lymphs (auto) (1.0-4.6) x10^3/uL Absolute Monos (auto) (0.0-1.3) x10^3/uL Absolute Nucleated RBC (0.00-0.01) x10^3u/L Lymphocytes % (24.0-44.0) % Monocytes % (0.0-12.0) % Eosinophils % (0.00-5.0) % Basophils % (0.0-0.4) % Absolute Granulocytes (1.4-6.9) x10^3/uL Basophils # (0-0.4) x10^3/uL D-Dimer (0.0-0.50) mg/L Puncture Site pCO2 (35-45) mmHg pO2 (75-100) mmHg Base Excess (-2.0-2.0) O2 Saturation (94-100) g/dF ABG pH (7.35-7.45) ABG HCO3 (22-28) ABG O2 Sat (Measured) (95-100) % Joel Test A-a Gradient a/A Ratio Hemoglobin Carboxyhemoglobin (0.0-6.9) % THgb Methemoglobin (1.4-1.5) % Potassium (3.5-5.1) Temperature C POC O2 Flow Rate % Sodium (137-145) mmol/L Chloride (98-107) mmol/L Carbon Dioxide (22-30) mmol/L Anion Gap (5-15) MEQ/L BUN (7-17) mg/dL Creatinine (0.52-1.04) mg/dL Estimated GFR ML/MIN Glucose (74-106) mg/dL Lactic Acid (0.4-2.0) Calcium (8.4-10.2) mg/dL Total Bilirubin (0.2-1.3) mg/dL AST (14-36) U/L ALT (0-35) U/L Alkaline Phosphatase (38-126) U/L Troponin I 0.013 < 0.012 (0.000-0.034) ng/mL NT-Pro-B Natriuret Pep (0-900) pg/mL Serum Total Protein (6.3-8.2) g/dL Albumin (3.5-5.0) g/dL Monoscreen (Negative) Influenza Type A Ag (NEGATIVE) Influenza Type B Ag (NEGATIVE) RSV (PCR) (Negative) SARS-CoV-2 (PCR) (NEGATIVE) Group A Strep Antibody (NEGATIVE) 10/06/22 Range/Units 04:50 WBC (4.0-10.5) x10^3/uL RBC (4.1-5.4) x10^6/uL Hgb (12.0-16.0) g/dL Hct (35-47) % MCV (78-100) fL MCH (26-32) pg MCHC (32-36) g/dL RDW (11.5-14.0) % Plt Count (150-450) x10^3/uL MPV (7.5-11.0) fL Gran % (36.0-66.0) % Immature Gran % (Auto) (0.00-0.4) % Nucleat RBC Rel Count (0.00-0.1) % Eos # (Auto) (0-0.5) x10^3/uL Immature Gran # (Auto) (0.00-0.03) x10^3u/L Absolute Lymphs (auto) (1.0-4.6) x10^3/uL Absolute Monos (auto) (0.0-1.3) x10^3/uL Absolute Nucleated RBC (0.00-0.01) x10^3u/L Lymphocytes % (24.0-44.0) % Monocytes % (0.0-12.0) % Eosinophils % (0.00-5.0) % Basophils % (0.0-0.4) % Absolute Granulocytes (1.4-6.9) x10^3/uL Basophils # (0-0.4) x10^3/uL D-Dimer (0.0-0.50) mg/L Puncture Site pCO2 (35-45) mmHg pO2 (75-100) mmHg Base Excess (-2.0-2.0) O2 Saturation (94-100) g/dF ABG pH (7.35-7.45) ABG HCO3 (22-28) ABG O2 Sat (Measured) (95-100) % Joel Test A-a Gradient a/A Ratio Hemoglobin Carboxyhemoglobin (0.0-6.9) % THgb Methemoglobin (1.4-1.5) % Potassium 3.6 (3.5-5.1) Temperature C POC O2 Flow Rate % Sodium 136 L (137-145) mmol/L Chloride 101 (98-107) mmol/L Carbon Dioxide 29 (22-30) mmol/L Anion Gap 9.3 (5-15) MEQ/L BUN 13 (7-17) mg/dL Creatinine 0.62 (0.52-1.04) mg/dL Estimated GFR > 60.0 ML/MIN Glucose 136 H (74-106) mg/dL Lactic Acid (0.4-2.0) Calcium 8.2 L (8.4-10.2) mg/dL Total Bilirubin 0.40 (0.2-1.3) mg/dL AST 34 (14-36) U/L ALT 21 (0-35) U/L Alkaline Phosphatase 123 (38-126) U/L Troponin I (0.000-0.034) ng/mL NT-Pro-B Natriuret Pep 500 (0-900) pg/mL Serum Total Protein 7.1 (6.3-8.2) g/dL Albumin 3.9 (3.5-5.0) g/dL Monoscreen (Negative) Influenza Type A Ag (NEGATIVE) Influenza Type B Ag (NEGATIVE) RSV (PCR) (Negative) SARS-CoV-2 (PCR) (NEGATIVE) Group A Strep Antibody (NEGATIVE) - Radiology Impressions Radiology Exams & Impressions: Radiology Procedures Category Date Time Status CHEST 1 VIEW (PORTABLE) Stat Exams 10/05/22 13:37 Completed CHEST WITH CONTRAST [CT] Stat Exams 10/05/22 15:43 Completed - Other Procedures and Tests Respiratory Therapy 10/05/22 17:06 Oxygen Nasal Cannula 2 lpm 10/05/22 17:47 Respiratory Therapy Assessment DAILY Assessment/Plan (1) Acute exacerbation of chronic obstructive airways disease Current Visit: Yes Status: Acute Assessment & Plan: continue IV steroids, nebs and antibiotics Code(s): J44.1 - CHRONIC OBSTRUCTIVE PULMONARY DISEASE W (ACUTE) EXACERBATION (2) Hypoxia Current Visit: Yes Status: Acute Code(s): R09.02 - HYPOXEMIA (3) Influenza A H1N1 infection Current Visit: Yes Status: Acute Code(s): J10.1 - FLU DUE TO OTH IDENT INFLUENZA VIRUS W OTH RESP MANIFEST
[2022-10-06] MEDS: NORVASC 5 MG PO SCH (10:30)
[2022-10-06] MEDS: Toprol Xl 50 MG PO SCH (10:30)
[2022-10-06] MEDS: ROCEPHIN 1 Gm-D5w 50 ml Bag** 1 G/50 ML IVPB IV SCH (10:30)
[2022-10-06] MEDS: Zithromax 500 MG/ 250 ML NaCl Premix 500 MG/250 ML IVPB IV SCH (11:06)
[2022-10-06] MEDS: NYSTOP POWDER 15 GM TP SCH ×2 (11:32→21:40)
[2022-10-06] MEDS ORDERED: solu-MEDROL ONE (14:08)
[2022-10-06] MEDS: Nicoderm CQ 21 MG TOP SCH (17:30)
[2022-10-06] MEDS ORDERED: NYSTOP POWDER 15 GM TP SCH (22:00)
[2022-10-07 05:37] LABS: Hematocrit 44.2 % (35-47); Hemoglobin 13.8 g/dL (12.0-16.0); Mean Cell Volume 94.2 fL (78-100); Mean Corpuscular Hemoglobin 29.4 pg (26-32); Mean Corpuscular Hgb Concent. 31.2 g/dL (32-36); Mean Platelet Volume 11.4 fL (7.5-11.0); Platelet Count 135 x10^3/uL (150-450); Red Blood Count 4.69 x10^6/uL (4.1-5.4); Red Cell Distribution Width 12.7 % (11.5-14.0); White Blood Count 11.4 x10^3/uL (4.0-10.5)
[2022-10-07 06:04] LABS: ANION GAP 7.1 MEQ/L (5-15); BLOOD UREA NITROGEN 17 mg/dL (7-17); CHLORIDE 104 mmol/L (98-107); Calcium 8.4 mg/dL (8.4-10.2); Carbon Dioxide 29 mmol/L (22-30); Creatinine 1 0.56 mg/dL (0.52-1.04); EST GLOMERULAR FILTRATION RATE > 60.0 ML/MIN; Glucose 139 mg/dL (74-106); MAGNESIUM 2.3 mg/dL (1.6-2.3); Potassium 3.8 mmol/L (3.5-5.1); SODIUM 136 mmol/L (137-145)
[2022-10-07] MEDS: solu-MEDROL 80 MG, Sterile H2O 10 ml 2 ML IV SCH ×6 (06:05→21:35)
[2022-10-07 06:45] LABS: BAND 3 % (0.0-2.0); Lymphocytes 11 % (24-44); Monocyte 1 % (0.0-12.0); Total Cells Counted 100
[2022-10-07 06:46] LABS: Platelet Estimate NORMAL (NORMAL)
[2022-10-07] MEDS: PROVENTIL 2.5 MG/3 ML NEB IH SCH ×3 (07:15→18:52)
--- NOTE | 2022-10-07 09:11 | PCM.NOTE ---
Date and Time: 10/07/22909 Subjective Assessment: patient feeling a little better, still coughing and respirations are labored but improved some Objective Exam General Appearance: no apparent distress, obese Neurologic Exam: alert, oriented x 3 Respiratory Exam: crackles/rales Cardiovascular Exam: regular rate/rhythm, normal heart sounds Gastrointestinal/Abdomen Exam: soft, No tenderness, No mass Extremity Exam: normal inspection, normal range of motion OBJECTIVE DATA Vital Signs: Vital Signs - 24 hr Temp Pulse Resp BP BP Pulse Ox 10/07/22 07:25 98.7 F 71 18 176/84 91 L 10/07/22 07:22 91 L 10/07/22 07:20 71 18 91 L 10/07/22 04:00 98.2 F 89 22 142/65 100 10/06/22 23:47 98.7 F 81 23 143/69 99 10/06/22 19:58 98.9 F 88 24 140/83 100 10/06/22 18:29 79 18 91 L 10/06/22 14:44 97.1 F 80 18 147/90 100 10/06/22 13:46 80 18 98 10/06/22 11:45 97.0 F 78 25 H 175/87 100 Pain Assessment - Last Documented Pain Intensity 0 [facility] Intake and Output: Intake & Output 10/04/22 10/05/22 10/06/22 10/07/22 11:59 11:59 11:59 11:59 Intake Total 1767 1880 Output Total 2678 2050 Balance -908 -170 Weight 82.7 kg Lab Results: Lab Results-Last 24 Hours 10/07/22 10/07/22 Range/Units 05:04 05:04 WBC 11.4 H (4.0-10.5) x10^3/uL RBC 4.69 (4.1-5.4) x10^6/uL Hgb 13.8 (12.0-16.0) g/dL Hct 44.2 (35-47) % MCV 94.2 (78-100) fL MCH 29.4 (26-32) pg MCHC 31.2 L (32-36) g/dL RDW 12.7 (11.5-14.0) % Plt Count 135 L (150-450) x10^3/uL MPV 11.4 H (7.5-11.0) fL Segmented Neutrophils 85 H (36.0-66.0) % Band Neutrophils 3 H (0.0-2.0) % Lymphocytes (Manual) 11 L (24-44) % Monocytes (Manual) 1 (0.0-12.0) % Platelet Estimate NORMAL (NORMAL) RBC Morphology NORMAL Sodium 136 L (137-145) mmol/L Potassium 3.8 (3.5-5.1) mmol/L Chloride 104 (98-107) mmol/L Carbon Dioxide 29 (22-30) mmol/L Anion Gap 7.1 (5-15) MEQ/L BUN 17 (7-17) mg/dL Creatinine 0.56 (0.52-1.04) mg/dL Estimated GFR > 60.0 ML/MIN Glucose 139 H (74-106) mg/dL Calcium 8.4 (8.4-10.2) mg/dL Magnesium 2.3 (1.6-2.3) mg/dL Radiology Exams: Radiology Procedures Category Date Time Status CHEST 1 VIEW (PORTABLE) Stat Exams 10/05/22 13:37 Completed CHEST WITH CONTRAST [CT] Stat Exams 10/05/22 15:43 Completed Assessment/Plan (1) Acute exacerbation of chronic obstructive airways disease Current Visit: Yes Status: Acute Assessment & Plan: continue rocephin/zithromax and IV steroids/nebs Code(s): J44.1 - CHRONIC OBSTRUCTIVE PULMONARY DISEASE W (ACUTE) EXACERBATION (2) Hypoxia Current Visit: Yes Status: Acute Code(s): R09.02 - HYPOXEMIA (3) Influenza A H1N1 infection Current Visit: Yes Status: Acute Code(s): J10.1 - FLU DUE TO OTH IDENT INFLUENZA VIRUS W OTH RESP MANIFEST
[2022-10-07] MEDS: Zithromax 500 MG/ 250 ML NaCl Premix 500 MG/250 ML IVPB IV SCH (09:18)
[2022-10-07] MEDS: Toprol Xl 50 MG PO SCH (09:18)
[2022-10-07] MEDS: NYSTOP POWDER 15 GM TP SCH ×3 (09:18→21:44)
[2022-10-07] MEDS: ROCEPHIN 1 Gm-D5w 50 ml Bag** 1 G/50 ML IVPB IV SCH (09:18)
[2022-10-07] MEDS: Ativan 1 MG PO PRN (13:05)
[2022-10-07] MEDS: Sodium Chloride 0.9% 1000 ML 1,000 ML IV SCH (16:27)
[2022-10-07] MEDS: Nicoderm CQ 21 MG TOP SCH (17:40)
[2022-10-08] MEDS: PROVENTIL 2.5 MG/3 ML NEB IH SCH ×3 (05:05→18:36)
[2022-10-08 05:13] LABS: Basophil (Absolute #) 0.01 x10^3/uL (0-0.4); Eosinophil (Absolute #) 0 x10^3/uL (0-0.5); Hematocrit 44.8 % (35-47); Hemoglobin 14.3 g/dL (12.0-16.0); Lymphocyte (Absolute #) 0.94 x10^3/uL (1.0-4.6); Lymphocytes % 7.9 % (24.0-44.0); Mean Cell Volume 94.7 fL (78-100); Mean Corpuscular Hemoglobin 30.2 pg (26-32); Mean Corpuscular Hgb Concent. 31.9 g/dL (32-36); Mean Platelet Volume 10.8 fL (7.5-11.0); Neutrophil % 86.2 % (36.0-66.0); Platelet Count 188 x10^3/uL (150-450); Red Blood Count 4.73 x10^6/uL (4.1-5.4); Red Cell Distribution Width 12.8 % (11.5-14.0)
[2022-10-08 05:41] LABS: ANION GAP 7.2 MEQ/L (5-15); BLOOD UREA NITROGEN 16 mg/dL (7-17); CHLORIDE 104 mmol/L (98-107); Calcium 8.3 mg/dL (8.4-10.2); Carbon Dioxide 30 mmol/L (22-30); Creatinine 1 0.56 mg/dL (0.52-1.04); EST GLOMERULAR FILTRATION RATE > 60.0 ML/MIN; Glucose 132 mg/dL (74-106); Potassium 3.8 mmol/L (3.5-5.1); SODIUM 138 mmol/L (137-145)
[2022-10-08] MEDS: solu-MEDROL 80 MG, Sterile H2O 10 ml 2 ML IV SCH ×6 (05:53→22:38)
--- NOTE | 2022-10-08 08:07 | PCM.NOTE ---
Date and Time: 10/08/22805 Subjective Assessment: patient notes some improvement in her breathing, still coughing and feeling short of breath and wheezing Objective Exam General Appearance: no apparent distress Neurologic Exam: alert, oriented x 3 Respiratory Exam: wheezing Cardiovascular Exam: regular rate/rhythm, normal heart sounds Gastrointestinal/Abdomen Exam: soft, No tenderness, No mass OBJECTIVE DATA Vital Signs: Vital Signs - 24 hr Temp Pulse Resp BP BP Pulse Ox 10/08/22 07:23 98.0 F 88 18 139/77 90 L 10/08/22 05:05 76 26 H 91 L 10/08/22 04:00 97.5 F 66 17 141/91 100 10/07/22 23:24 98.0 F 74 19 173/79 92 L 10/07/22 19:44 99.1 F 80 24 141/77 175/72 91 L 10/07/22 18:50 80 22 91 L 10/07/22 13:57 97.7 F 79 24 144/74 91 L 10/07/22 13:34 78 22 92 L 10/07/22 11:18 98.7 F 76 26 H 175/72 98 Pain Assessment - Last Documented Pain Intensity 0 Pain [facility] Intake and Output: Intake & Output 10/05/22 10/06/22 10/07/22 10/08/22 11:59 11:59 11:59 11:59 Intake Total 1767 2240 1850 Output Total 2675 2050 1200 Balance -908 190 650 Weight 82.7 kg Lab Results: Lab Results-Last 24 Hours 10/08/22 10/08/22 Range/Units 04:00 04:47 WBC 12.0 H (4.0-10.5) x10^3/uL RBC 4.73 (4.1-5.4) x10^6/uL Hgb 14.3 (12.0-16.0) g/dL Hct 44.8 (35-47) % MCV 94.7 (78-100) fL MCH 30.2 (26-32) pg MCHC 31.9 L (32-36) g/dL RDW 12.8 (11.5-14.0) % Plt Count 188 D (150-450) x10^3/uL MPV 10.8 (7.5-11.0) fL Gran % 86.2 H (36.0-66.0) % Immature Gran % (Auto) 0.8 H (0.00-0.4) % Nucleat RBC Rel Count 0.0 (0.00-0.1) % Eos # (Auto) 0 (0-0.5) x10^3/uL Immature Gran # (Auto) 0.10 H (0.00-0.03) x10^3u/L Absolute Lymphs (auto) 0.94 L (1.0-4.6) x10^3/uL Absolute Monos (auto) 0.60 (0.0-1.3) x10^3/uL Absolute Nucleated RBC 0.00 (0.00-0.01) x10^3u/L Lymphocytes % 7.9 L (24.0-44.0) % Monocytes % 5.0 (0.0-12.0) % Eosinophils % 0.0 (0.00-5.0) % Basophils % 0.1 (0.0-0.4) % Absolute Granulocytes 10.30 H (1.4-6.9) x10^3/uL Basophils # 0.01 (0-0.4) x10^3/uL Sodium 138 (137-145) mmol/L Potassium 3.8 (3.5-5.1) mmol/L Chloride 104 (98-107) mmol/L Carbon Dioxide 30 (22-30) mmol/L Anion Gap 7.2 (5-15) MEQ/L BUN 16 (7-17) mg/dL Creatinine 0.56 (0.52-1.04) mg/dL Estimated GFR > 60.0 ML/MIN Glucose 132 H (74-106) mg/dL Calcium 8.3 L (8.4-10.2) mg/dL Assessment/Plan (1) Acute exacerbation of chronic obstructive airways disease Current Visit: Yes Status: Acute Assessment & Plan: continue rocephin/zithromax, IV steroids and nebs. Code(s): J44.1 - CHRONIC OBSTRUCTIVE PULMONARY DISEASE W (ACUTE) EXACERBATION (2) Hypoxia Current Visit: Yes Status: Acute Code(s): R09.02 - HYPOXEMIA (3) Influenza A H1N1 infection Current Visit: Yes Status: Acute Code(s): J10.1 - FLU DUE TO OTH IDENT INFLUENZA VIRUS W OTH RESP MANIFEST
[2022-10-08] MEDS: ROCEPHIN 1 Gm-D5w 50 ml Bag** 1 G/50 ML IVPB IV SCH (09:35)
[2022-10-08] MEDS: NYSTOP POWDER 15 GM TP SCH ×2 (09:36→22:50)
[2022-10-08] MEDS: Toprol Xl 50 MG PO SCH (09:36)
[2022-10-08] MEDS: Zithromax 500 MG/ 250 ML NaCl Premix 500 MG/250 ML IVPB IV SCH (09:38)
[2022-10-08] MEDS: TYLENOL 325 MG PO PRN (09:38)
[2022-10-08] MEDS: Nicoderm CQ 21 MG TOP SCH (18:13)
[2022-10-08] MEDS: APRESOLINE 20 MG/ML INJ IV PRN (23:22)
[2022-10-08] MEDS: Sodium Chloride 0.9% 1000 ML 1,000 ML IV SCH (23:23)
[2022-10-09] MEDS: TYLENOL 325 MG PO PRN ×2 (03:34→16:48)
[2022-10-09] MEDS: Ativan 1 MG PO PRN ×2 (04:00→16:48)
[2022-10-09] MEDS: solu-MEDROL 80 MG, Sterile H2O 10 ml 2 ML IV SCH ×6 (06:13→22:46)
[2022-10-09] MEDS: PROVENTIL 2.5 MG/3 ML NEB IH SCH ×3 (08:02→19:49)
[2022-10-09] MEDS: ROCEPHIN 1 Gm-D5w 50 ml Bag** 1 G/50 ML IVPB IV SCH (08:11)
[2022-10-09] MEDS: NYSTOP POWDER 15 GM TP SCH ×2 (08:12→22:45)
[2022-10-09] MEDS: Toprol Xl 50 MG PO SCH (08:12)
[2022-10-09] MEDS: APRESOLINE 20 MG/ML INJ IV PRN (08:31)
--- NOTE | 2022-10-09 09:37 | PCM.NOTE ---
Date and Time: 10/09/22934 Subjective Assessment: patient continues to improve, she is still dyspneic and requiring 3L oxygen via NC Objective Exam General Appearance: no apparent distress Neurologic Exam: alert, oriented x 3 Respiratory Exam: accessory muscle use, prolonged expirations, rhonchi Cardiovascular Exam: regular rate/rhythm, normal heart sounds Gastrointestinal/Abdomen Exam: soft, No tenderness, No mass OBJECTIVE DATA Vital Signs: Vital Signs - 24 hr Temp Pulse Resp BP BP BP Pulse Ox 10/09/22 08:30 180/110 10/09/22 08:02 67 22 93 L 10/09/22 07:00 97.1 F 64 23 203/109 96 10/09/22 03:34 205/95 91 L 10/09/22 03:00 100.2 F 80 27 H 205/95 91 L 10/08/22 23:47 98.9 F 75 24 188/108 99 10/08/22 21:32 134/99 10/08/22 19:38 98.4 F 61 26 H 197/93 97 10/08/22 18:35 60 22 94 L 10/08/22 16:00 98.6 F 74 18 172/83 90 L 10/08/22 13:19 66 18 92 L 10/08/22 11:28 98.4 F 63 20 134/73 Pain Assessment - Last Documented Pain Intensity 0 Pain Scale Used 0-10 Pain Scale Intake and Output: Intake & Output 10/06/22 10/07/22 10/08/22 10/09/22 11:59 11:59 11:59 11:59 Intake Total 1767 2240 2030 2077 Output Total 2675 2050 1700 2500 Balance -908 190 330 -423 Weight 82.7 kg Lab Results: Lab Results-Last 24 Hours 10/08/22 Range/Units 16:44 Procalcitonin 0.057 (0.030-0.080) ng/mL Multi-Disciplinary Progress Notes: Multi-Disciplinary Progress Notes 10/08/22 10:37 Physical Therapy Note by Viviane([facility]on#[id number])Genet PT. WAS SEEN BY P.T. THIS AM. REPORTS NO C/O PN. ON BEDSIDE COMMODE UPON P.T. ARRIVAL TO ROOM. PT. IN DROPLET ISOLATION FOR FLU A. CONT. ON 2.5 L O2 VIA NASAL CANNULA. PT. LIVES ALONE W/ A SISTER AND SON WHO STOP BY PRN. WAS NOT ON O2 PRIOR TO ADMISSION. PT. HAS IV, FRANCISCO CATH, AND O2 IN PLACE. PERFORMED SIT TO STAND FROM COMMODE W/ CGA. ABLE TO STAND X 1-2' W/ SBA TO ASSIST HER W/ HYGIENE AFTER TOILETING. PT. AMBULATED ~ 40' IN ROOM W/ RW W/ SLOW PACE AND NL STRIDE AND ALEKSANDR. NOTED DYSPNEA W/ AMBULATION. O2 SATS 87-91% ON DYNAMAP AFTER WALKING W/ O2 IN PLACE. PT. REQUIRES MANY V.C. TO BREATHE PROPERLY VIA NOSE. TOOK ~ 3' TO RECOVER O2 SATS TO 91% AFTER WALK. PT. DENIES NEED FOR REHAB STAY OR HHC UPON D/C. STATES SHE HAS A ROLLATOR AT HOME THAT WAS GIVEN TO HER BUT THE BRAKES DON'T LOCK. PT. NEEDS NEW ROLLATOR FOR SAFE AMBULATION @ D/C. FEEL SHE WOULD ALSO BENEFIT FROM HHC INTERVENTION D/T WEAKNESS, DYSPNEA ,AND NEW NEED FOR O2. WILL DISCUSS THIS AGAIN W/ PT. WILL CONT. PT 5X/WK TO INCREASE ACTIVITY TOLERANCE AND GAIT STABILITY TO PREP FOR D/C. RX TIME [id number] Initialized on 10/08/22 10:37 - END OF NOTE 10/08/22 10:29 Case Management Note by Mariza Warren PHYSICAL THERAPY RECOMMENDING ROLLATOR- [facility] S[facility] [place] Initialized on 10/08/22 10:29 - END OF NOTE 10/08/22 10:03 Case Management Note by Mariza Warren S/W PATIENT- SHE CONTINUES TO DENY ANY NEW NEEDS AT TIME OF DC. SHE PLANS TO RETURN HOME TO HER PRIOR LEVEL OF FUNCTIONING AT TIME OF DC. PATIENT CURRENTLY ON 2L/NC. SHE DOES NOT WEAR THAT HOME. OXYGEN FORM PLACED ON CHART FOR WEEKEND USE IF NEEDED Initialized on 10/08/22 10:03 - END OF NOTE Assessment/Plan (1) Acute exacerbation of chronic obstructive airways disease Current Visit: Yes Status: Acute Assessment & Plan: continue IV solu medrol, rocephin and zithromax. slowly improving clinically Code(s): J44.1 - CHRONIC OBSTRUCTIVE PULMONARY DISEASE W (ACUTE) EXACERBATION (2) Hypoxia Current Visit: Yes Status: Acute Code(s): R09.02 - HYPOXEMIA (3) Influenza A H1N1 infection Current Visit: Yes Status: Acute Code(s): J10.1 - FLU DUE TO OTH IDENT INFLUENZA VIRUS W OTH RESP MANIFEST (4) Hypertension Current Visit: Yes Status: Acute Assessment & Plan: add lisinopril, bp remains elevated. prn hydralazine ordered Code(s): I10 - ESSENTIAL (PRIMARY) HYPERTENSION
[2022-10-09] MEDS: Zestril 10 MG PO SCH (10:31)
[2022-10-09] MEDS: Zithromax 500 MG/ 250 ML NaCl Premix 500 MG/250 ML IVPB IV SCH (10:31)
[2022-10-09] MEDS: Nicoderm CQ 21 MG TOP SCH (18:23)
[2022-10-09] MEDS ORDERED: solu-MEDROL ONE (22:29)
[2022-10-10 05:01] LABS: Hematocrit 43.1 % (35-47); Hemoglobin 13.8 g/dL (12.0-16.0); Mean Cell Volume 92.7 fL (78-100); Mean Corpuscular Hemoglobin 29.7 pg (26-32); Mean Platelet Volume 11.1 fL (7.5-11.0); Platelet Count 128 x10^3/uL (150-450); Red Blood Count 4.65 x10^6/uL (4.1-5.4); Red Cell Distribution Width 12.6 % (11.5-14.0); White Blood Count 8.7 x10^3/uL (4.0-10.5)
[2022-10-10 05:20] LABS: ANION GAP 5.5 MEQ/L (5-15); BLOOD UREA NITROGEN 15 mg/dL (7-17); CHLORIDE 101 mmol/L (98-107); Calcium 7.7 mg/dL (8.4-10.2); Carbon Dioxide 34 mmol/L (22-30); Creatinine 1 0.55 mg/dL (0.52-1.04); EST GLOMERULAR FILTRATION RATE > 60.0 ML/MIN; Glucose 142 mg/dL (74-106); Potassium 3.2 mmol/L (3.5-5.1); SODIUM 137 mmol/L (137-145)
[2022-10-10] MEDS: PROVENTIL 2.5 MG/3 ML NEB IH SCH (05:28)
[2022-10-10] MEDS: solu-MEDROL 80 MG, Sterile H2O 10 ml 2 ML IV SCH ×6 (05:37→22:08)
[2022-10-10] MEDS: TYLENOL 325 MG PO PRN ×2 (05:37→22:09)
[2022-10-10] MEDS: Ativan 1 MG PO PRN ×2 (05:37→22:09)
[2022-10-10] MEDS: APRESOLINE 20 MG/ML INJ IV PRN (05:48)
[2022-10-10] MEDS: Zithromax 500 MG/ 250 ML NaCl Premix 500 MG/250 ML IVPB IV SCH (08:03)
[2022-10-10] MEDS: Toprol Xl 50 MG PO SCH ×3 (08:03→22:07)
[2022-10-10] MEDS: Zestril 10 MG PO SCH ×3 (08:03→11:03)
[2022-10-10] MEDS: NYSTOP POWDER 15 GM TP SCH ×2 (08:04→22:07)
[2022-10-10] MEDS ORDERED: Zestril 10 MG PO SCH (10:03)
[2022-10-10 10:26] LABS: BAND 1 % (0.0-2.0); Lymphocytes 10 % (24-44); Monocyte 2 % (0.0-12.0); Total Cells Counted 100
[2022-10-10 10:27] LABS: Platelet Estimate DECREASED (NORMAL)
[2022-10-10] MEDS: Sodium Chloride 0.9% 1000 ML 1,000 ML IV SCH (11:02)
[2022-10-10] MEDS: Klor Con PO SCH (11:02)
[2022-10-10] MEDS: NORVASC 5 MG PO SCH (11:03)
[2022-10-10] MEDS: ROCEPHIN 1 Gm-D5w 50 ml Bag** 1 G/50 ML IVPB IV SCH (11:03)
[2022-10-10] MEDS: DUONEB 0.5-3 MG/3 ml Neb IH SCH ×2 (11:54→17:40)
[2022-10-10] MEDS: FLUTICASONE-SALMETEROL 250-50 IH SCH (17:42)
[2022-10-10] MEDS: Nicoderm CQ 21 MG TOP SCH (22:07)
[2022-10-11] MEDS: DUONEB 0.5-3 MG/3 ml Neb IH SCH ×4 (01:12→19:00)
[2022-10-11] MEDS: solu-MEDROL 80 MG, Sterile H2O 10 ml 2 ML IV SCH ×2 (05:00)
[2022-10-11 05:17] LABS: Hematocrit 40.6 % (35-47); Hemoglobin 13.3 g/dL (12.0-16.0); Mean Cell Volume 91.4 fL (78-100); Mean Corpuscular Hgb Concent. 32.8 g/dL (32-36); Mean Platelet Volume 11.5 fL (7.5-11.0); Platelet Count 143 x10^3/uL (150-450); Red Blood Count 4.44 x10^6/uL (4.1-5.4); Red Cell Distribution Width 12.7 % (11.5-14.0); White Blood Count 9.4 x10^3/uL (4.0-10.5)
[2022-10-11 05:46] LABS: ALBUMIN 2.9 g/dL (3.5-5.0); ALKALINE PHOSPHATASE 92 U/L (38-126); ANION GAP 3.8 MEQ/L (5-15); BLOOD UREA NITROGEN 16 mg/dL (7-17); CHLORIDE 102 mmol/L (98-107); Calcium 7.5 mg/dL (8.4-10.2); Carbon Dioxide 33 mmol/L (22-30); EST GLOMERULAR FILTRATION RATE > 60.0 ML/MIN; Glucose 162 mg/dL (74-106); Potassium 3.2 mmol/L (3.5-5.1); SGOT/AST 24 U/L (14-36); SGPT/ALT 43 U/L (0-35); SODIUM 135 mmol/L (137-145); Total Protein 5.6 g/dL (6.3-8.2)
[2022-10-11] MEDS: FLUTICASONE-SALMETEROL 250-50 IH SCH ×2 (07:14→19:00)
[2022-10-11 08:38] LABS: Slide Review YES
[2022-10-11] MEDS ORDERED: solu-MEDROL 40 MG, Sterile H2O 10 ml 2 ML IV SCH ×2 (08:44)
--- NOTE | 2022-10-11 08:47 | PCM.NOTE ---
Date and Time: 10/11/22 0844 Subjective Assessment: patient is feeling better, still requiring 3L oxygen. is not on home oxygen. tolerating po Objective Exam General Appearance: no apparent distress, alert Respiratory Exam: accessory muscle use, prolonged expirations, rhonchi Cardiovascular Exam: regular rate/rhythm, normal heart sounds Gastrointestinal/Abdomen Exam: soft, No tenderness, No mass Extremity Exam: normal inspection, normal range of motion OBJECTIVE DATA Vital Signs: Vital Signs - 24 hr Temp Pulse Resp BP Pulse Ox 10/11/22 07:19 88 22 90 L 10/11/22 06:56 97.9 F 69 16 141/72 91 L 10/11/22 04:00 98.4 F 83 22 136/66 99 10/11/22 01:12 77 18 97 10/10/22 23:30 98.9 F 82 22 139/72 99 10/10/22 19:38 99.2 F 96 H 24 132/87 100 10/10/22 17:43 82 22 90 L 10/10/22 16:00 98.9 F 82 16 184/84 92 L 10/10/22 12:11 75 20 85 L 10/10/22 11:50 98.1 F 101 H 16 160/77 91 L Pain Assessment - Last Documented Pain Intensity 0 Pain Scale Used [facility] Intake and Output: Intake & Output 10/08/22 10/09/22 10/10/22 10/11/22 11:59 11:59 11:59 11:59 Intake Total 20297 2274 2677 Output Total 1700 2500 2100 2175 Balance 330 -423 174 502 Weight 82.7 kg Lab Results: Lab Results-Last 24 Hours 10/10/22 10/11/22 10/11/22 Range/Units 04:39 05:06 05:06 WBC 9.4 (4.0-10.5) x10^3/uL RBC 4.44 (4.1-5.4) x10^6/uL Hgb 13.3 (12.0-16.0) g/dL Hct 40.6 (35-47) % MCV 91.4 (78-100) fL MCH 30.0 (26-32) pg MCHC 32.8 (32-36) g/dL RDW 12.7 (11.5-14.0) % Plt Count 143 L (150-450) x10^3/uL MPV 11.5 H (7.5-11.0) fL Segmented Neutrophils 87 H (36.0-66.0) % Band Neutrophils 1 (0.0-2.0) % Lymphocytes (Manual) 10 L (24-44) % Monocytes (Manual) 2 (0.0-12.0) % Platelet Estimate DECREASED (NORMAL) RBC Morphology NORMAL Sodium 135 L (137-145) mmol/L Potassium 3.2 L (3.5-5.1) mmol/L Chloride 102 (98-107) mmol/L Carbon Dioxide 33 H (22-30) mmol/L Anion Gap 3.8 L (5-15) MEQ/L BUN 16 (7-17) mg/dL Creatinine 0.50 L (0.52-1.04) mg/dL Estimated GFR > 60.0 ML/MIN Glucose 162 H (74-106) mg/dL Calcium 7.5 L (8.4-10.2) mg/dL Total Bilirubin 0.50 (0.2-1.3) mg/dL AST 24 (14-36) U/L ALT 43 H (0-35) U/L Alkaline Phosphatase 92 (38-126) U/L Serum Total Protein 5.6 L (6.3-8.2) g/dL Albumin 2.9 L (3.5-5.0) g/dL Slides for Path Review YES Radiology Exams: Radiology Procedures Category Date Time Status CHEST 1 VIEW (PORTABLE) DAILY Exams 10/11/22 07:41 Taken Assessment/Plan (1) Acute exacerbation of chronic obstructive airways disease Current Visit: Yes Status: Acute Assessment & Plan: improving, will wean steroid dose and continue current management. chest xray today shows nothing new that I can see, formal report is pending. Code(s): J44.1 - CHRONIC OBSTRUCTIVE PULMONARY DISEASE W (ACUTE) EXACERBATION (2) Hypoxia Current Visit: Yes Status: Acute Code(s): R09.02 - HYPOXEMIA (3) Influenza A H1N1 infection Current Visit: Yes Status: Acute Code(s): J10.1 - FLU DUE TO OTH IDENT INFLUENZA VIRUS W OTH RESP MANIFEST (4) Hypertension Current Visit: Yes Status: Acute Code(s): I10 - ESSENTIAL (PRIMARY) HYPERTEN JUNIOR
--- NOTE | 2022-10-11 09:09 | XRAY ---
Indication: Cough and short of breath. Influenza. Pneumonia. Comparison: October 05, 2022 Portable chest again hyperinflated with new bilateral mid to lower lung patchy airspace disease and tiny bibasilar effusions. Again incidental scattered tiny calcified granulomas. Heart and mediastinal structures within normal limits.
[2022-10-11] MEDS: Klor Con PO SCH (09:41)
[2022-10-11] MEDS: NORVASC 5 MG PO SCH (09:42)
[2022-10-11] MEDS: Zestril 10 MG PO SCH (09:42)
[2022-10-11] MEDS: NYSTOP POWDER 15 GM TP SCH ×2 (09:42→22:03)
[2022-10-11] MEDS: ROCEPHIN 1 Gm-D5w 50 ml Bag** 1 G/50 ML IVPB IV SCH (09:42)
[2022-10-11] MEDS ORDERED: solu-MEDROL IV SCH (10:00)
[2022-10-11] MEDS: Zithromax 500 MG/ 250 ML NaCl Premix 500 MG/250 ML IVPB IV SCH (11:01)
[2022-10-11] MEDS: solu-MEDROL 40 MG, Sterile H2O 10 ml 1 ML IV SCH ×4 (14:51→22:03)
[2022-10-11] MEDS: Nicoderm CQ 21 MG TOP SCH (18:17)
[2022-10-11] MEDS: Toprol Xl 50 MG PO SCH (22:03)
[2022-10-11] MEDS: TYLENOL 325 MG PO PRN (22:03)
[2022-10-11] MEDS: Ativan 1 MG PO PRN (22:04)
[2022-10-12] MEDS: DUONEB 0.5-3 MG/3 ml Neb IH SCH ×4 (00:34→19:05)
[2022-10-12 05:41] LABS: Hematocrit 41.2 % (35-47); Hemoglobin 13.4 g/dL (12.0-16.0); Mean Corpuscular Hemoglobin 29.9 pg (26-32); Mean Corpuscular Hgb Concent. 32.5 g/dL (32-36); Mean Platelet Volume 11.2 fL (7.5-11.0); Platelet Count 151 x10^3/uL (150-450); Red Blood Count 4.48 x10^6/uL (4.1-5.4); Red Cell Distribution Width 12.9 % (11.5-14.0); White Blood Count 10.5 x10^3/uL (4.0-10.5)
[2022-10-12] MEDS: solu-MEDROL 40 MG, Sterile H2O 10 ml 1 ML IV SCH ×2 (05:45)
[2022-10-12 06:16] LABS: ANION GAP 4.7 MEQ/L (5-15); BLOOD UREA NITROGEN 20 mg/dL (7-17); CHLORIDE 104 mmol/L (98-107); Calcium 7.5 mg/dL (8.4-10.2); Carbon Dioxide 33 mmol/L (22-30); Creatinine 1 0.56 mg/dL (0.52-1.04); EST GLOMERULAR FILTRATION RATE > 60.0 ML/MIN; Glucose 150 mg/dL (74-106); Potassium 3.3 mmol/L (3.5-5.1); SODIUM 138 mmol/L (137-145)
[2022-10-12] MEDS: NORVASC 5 MG PO SCH (07:51)
[2022-10-12] MEDS: APRESOLINE 20 MG/ML INJ IV PRN (07:51)
[2022-10-12] MEDS: Zestril 10 MG PO SCH (07:51)
[2022-10-12] MEDS: Klor Con PO SCH (07:51)
[2022-10-12] MEDS: Zithromax 500 MG/ 250 ML NaCl Premix 500 MG/250 ML IVPB IV SCH (07:52)
[2022-10-12 08:18] LABS: BAND 1 % (0.0-2.0); Lymphocytes 18 % (24-44); Monocyte 5 % (0.0-12.0); Platelet Estimate NORMAL (NORMAL); Total Cells Counted 100
[2022-10-12] MEDS: FLUTICASONE-SALMETEROL 250-50 IH SCH ×2 (08:28→19:05)
[2022-10-12] MEDS: NYSTOP POWDER 15 GM TP SCH (08:48)
[2022-10-12] MEDS ORDERED: DELTASONE 10 MG PO ONE (13:52)
[2022-10-12] MEDS ORDERED: K-LYTE PO ONE (13:55)
--- NOTE | 2022-10-12 14:37 | PCM.NOTE ---
Date and Time: 10/12/22 1432 Subjective Assessment: Patient still requiring O2 but was strong enough to get up and shower . She qualifies for Home O2 and will need nebulkizer treatments Refuses HH but states Donavan Johnson is like a son to her and he will be staying and helping her at home. Objective Exam General Appearance: no apparent distress Neurologic Exam: alert, oriented x 3, cooperative, normal mood/affect Skin Exam: warm, dry, pale Ears, Nose, Throat Exam: normal ENT inspection Neck Exam: normal inspection Respiratory Exam: wheezing (scattered coarse EEW all lung paulson. No conversational dyspnea.) Cardiovascular Exam: regular rate/rhythm Extremity Exam: other (trace ankle edema bilat), No calf tenderness OBJECTIVE DATA Vital Signs: Vital Signs - 24 hr Temp Pulse Resp BP Pulse Ox 10/12/22 12:57 91 H 18 93 L 10/12/22 12:00 98.9 F 78 20 152/72 99 10/12/22 08:28 76 18 90 L 10/12/22 06:50 97.8 F 67 18 196/83 100 10/12/22 04:00 97.7 F 69 17 149/65 94 L 10/12/22 00:35 68 16 97 10/11/22 22:52 98.0 F 71 16 168/78 98 10/11/22 19:31 98.7 F 96 H 16 147/84 98 10/11/22 19:14 85 16 95 10/11/22 16:00 99.3 F 83 18 157/74 96 Pain Assessment - Last Documented Pain Intensity 0 Pain Scale Used [facility] Intake and Output: Intake & Output 10/10/22 10/11/22 10/12/22 10/13/22 11:59 11:59 11:59 11:59 Intake Total 0896 7557 1748 360 Output Total 2100 2175 2900 600 Balance 174 502 -1152 -240 Weight 82.7 kg Lab Results: Lab Results-Last 24 Hours 10/12/22 10/12/22 10/12/22 Range/Units 04:40 04:40 Unknown WBC 10.5 (4.0-10.5) x10^3/uL RBC 4.48 (4.1-5.4) x10^6/uL Hgb 13.4 (12.0-16.0) g/dL Hct 41.2 (35-47) % MCV 92.0 (78-100) fL MCH 29.9 (26-32) pg MCHC 32.5 (32-36) g/dL RDW 12.9 (11.5-14.0) % Plt Count 151 (150-450) x10^3/uL MPV 11.2 H (7.5-11.0) fL Segmented Neutrophils 76 H (36.0-66.0) % Band Neutrophils 1 (0.0-2.0) % Lymphocytes (Manual) 18 L (24-44) % Monocytes (Manual) 5 (0.0-12.0) % Platelet Estimate NORMAL (NORMAL) RBC Morphology NORMAL Sodium 138 (137-145) mmol/L Potassium 3.3 L (3.5-5.1) mmol/L Chloride 104 (98-107) mmol/L Carbon Dioxide 33 H (22-30) mmol/L Anion Gap 4.7 L (5-15) MEQ/L BUN 20 H (7-17) mg/dL Creatinine 0.56 (0.52-1.04) mg/dL Estimated GFR > 60.0 ML/MIN Glucose 150 H (74-106) mg/dL Calcium 7.5 L (8.4-10.2) mg/dL Procalcitonin 0.065 (0.030-0.080) ng/mL Radiology Exams: Radiology Procedures Category Date Time Status CHEST 1 VIEW (PORTABLE) DAILY Exams 10/11/22 07:41 Completed Multi-Disciplinary Progress Notes: Multi-Disciplinary Progress Notes 10/12/22 12:44 (created 10/12/22 12:49) Respiratory Note by Soraya Roblero PT'S O2 SAT ON ROOM AIR WHILE AT REST WAS 83%. PT WAS PLACED ON 2LPM NASAL CANNULA AND O2 SAT ONLY INCREASED TO 87%. OXYGEN WAS THEN INCREASED TO 3LPM VIA NASAL CANNULA AND O2 SAT INCREASED TO 93%. Initialized on 10/12/22 12:49 - END OF NOTE 10/12/22 12:33 Case Management Note by Mariza Warren PATIENT CONTINUES TO DENY ANY NEW NEEDS AT TIME OF DC. SHE PLANS TO RETURN HOME TO HER PLF AT TIME OF DC. S/W YARIEL AT [facility] [place]- HE WILL DELIVER ROLLATOR FIRST THING IN THE AM Initialized on 10/12/22 12:33 - END OF NOTE 10/11/22 15:56 Physical Therapy Note by Marilou(#[id number] Pt in chair and agreeable to IP PT. Pt remains on 3L of O2 via NC during session with tank used for amb. O2 at rest is 92%. O2 sat was checked several times during session and remained >90% with each reading. Pt is able to sit to stand with SBA and RW. Pt amb to door and back with 180 deg turn with CGA and RW. Pt needed 1 standing rest and constant cuing to breathe through her nose to complete this 15' walk. Pt returned to chair but noted she needed to transfer to commode. Pt sit to stand and side stepped to commode to sit. Nsg was called and was present with pt when PT departed. Pt was replaced back on room O2 on 3L. PT will remind nsg to restart IV drip at end of session as IV was paused to ease line management. [id number] Initialized on 10/11/22 15:56 - END OF NOTE Assessment/Plan (1) Acute exacerbation of chronic obstructive airways disease Current Visit: Yes Status: Acute Assessment & Plan: Needs qualified for Home on O2,Rx Nebulizer for duoneb treatmments and will start oral prednisone to wean off at home Code(s): J44.1 - CHRONIC OBSTRUCTIVE PULMONARY DISEASE W (ACUTE) EXACERBATION (2) Influenza A H1N1 infection Current Visit: Yes Status: Resolved Code(s): J10.1 - FLU DUE TO OTH IDENT I NFLUENZA VIRUS W OTH RESP MANIFEST (3) Hypoxia Current Visit: Yes Status: Acute Assessment & Plan: Home O2 will be arranged Code(s): R09.02 - HYPOXEMIA
[2022-10-12] MEDS: DELTASONE 10 MG PO SCH (18:21)
[2022-10-12] MEDS: Nicoderm CQ 21 MG TOP SCH (18:21)
[2022-10-12] MEDS: Toprol Xl 50 MG PO SCH (20:29)
[2022-10-12] MEDS: TYLENOL 325 MG PO PRN (20:31)
[2022-10-12] MEDS ORDERED: DELTASONE 10 MG PO SCH (22:00)
[2022-10-13] MEDS: NYSTOP POWDER 15 GM TP SCH ×2 (00:11→09:11)
[2022-10-13] MEDS: DUONEB 0.5-3 MG/3 ml Neb IH SCH ×2 (00:23→07:10)
[2022-10-13] MEDS: FLUTICASONE-SALMETEROL 250-50 IH SCH (07:10)
[2022-10-13 07:56] VITALS: BP 186/79; PULSE 66; O2SAT 100
[2022-10-13] MEDS: DELTASONE 10 MG PO SCH (07:59)
[2022-10-13] MEDS: Sodium Chloride 0.9% 1000 ML 1,000 ML IV SCH ×2 (08:00→08:01)
--- NOTE | 2022-10-13 08:01 | PCM.DCORD ---
- Discharge Disposition: Home, Self-Care Condition: Good Prescriptions: New Lorazepam 0.5 mg [Ativan 0.5 MG] 0.5 mg PO DAILY PRN #15 tablet PRN Reason: Anxiety/Agitation Prednisone 10 mg [Deltasone 10 mg] 10 mg PO BIDWM #14 tablet Albuterol/Ipratropium 3ml Neb* [DUONEB 0.5-3 MG/3 ml Neb] 3 ml IH TID #90 Amlodipine Besylate 5 mg [Norvasc 5 mg] 5 mg PO QAM tablet Lisinopril 10 mg [Zestril 10 MG] 20 mg PO DAILY tablet Instructions: Oxygen Therapy, Adult (DC) Additional Instructions: WEAR 3L/NC AT ALL TIMES CALL [facility] AT [phone] WHEN YOU LEAVE [facility], [facility] SO THEY CAN MEET YOU AT YOUR HOME TO DELIVER YOUR CONCENTRATOR THEY WILL ALSO DELIVER YOUR NEBULIZER MACHINE Note to nurse - Isael Rx needs signed or callled in . Ativan will be sent via [facility].
--- NOTE | 2022-10-13 08:08 | PCM.DS ---
Discharge Summary Date of Admission: 10/06/22 10:15 Date of Discharge: 10/13/22 Admitting Physician: DANIELITO DAVENPORT Primary Care Provider: BEATA MILIAN NP Allergies Allergies Penicillins Allergy (Verified 10/05/22 17:35) Hospital Summary - Hospital Course Hospital Course: Cindy is a 72 yr old female patient of Frances Galarza NP who was admitted through ER to [facility] with respiratory distress due to Influenza A. CXR showed infiltrate left lung.Patient required O2 on admission and throughout her stay.She responded to treatment with IV fluids ,Solumedrol,Zithromax and Neb treatments. Elevated B/P in part due to axiety was monitored . Electrolyte imbalance corrected. Patient was counciled on smoke cessation. Home health was advised but patient refused as she has someone to stay with her. Nebulizer machine and O2 were arranged to be delivered. Patient will follow upwith her PCP Beata Milian NP. - Vitals & Intake/Output Vital Signs: Vital Signs Temperature 97.7 F 10/13/22 07:55 Pulse Rate 66 10/13/22 07:55 Respiratory Rate 16 10/13/22 07:55 Blood Pressure 186/79 10/13/22 07:55 O2 Sat by Pulse Oximetry 100 10/13/22 07:55 Intake & Output: Intake & Output 10/10/22 10/11/22 10/12/22 10/13/22 11:59 11:59 11:59 11:59 Intake Total 2274 2677 1748 960 Output Total 2100 2175 2900 1300 Balance 174 502 -1152 -340 Weight 82.7 kg - Lab Result Diagrams: 10/12/22 04:40 10/12/22 04:40 Lab Results-Last 24 Hrs: Lab Results-Last 24 Hours 10/12/22 10/12/22 Range/Units 04:40 Unknown Segmented Neutrophils 76 H (36.0-66.0) % Band Neutrophils 1 (0.0-2.0) % Lymphocytes (Manual) 18 L (24-44) % Monocytes (Manual) 5 (0.0-12.0) % Platelet Estimate NORMAL (NORMAL) RBC Morphology NORMAL Procalcitonin 0.065 (0.030-0.080) ng/mL Micro Results-Entire Visit: Microbiology 10/05/22 14:00 Blood Culture Gram Stain - Final Blood Not Reportable Blood Culture - Final NO GROWTH 10/05/22 13:50 Blood Culture Gram Stain - Final Blood Not Reportable Blood Culture - Final NO GROWTH - Radiology Exams Ordered Rad Exams-Entire Visit: Radiology Procedures Category Date Time Status CHEST 1 VIEW (PORTABLE) DAILY Exams 10/11/22 07:41 Completed - Procedures and Test Procedures and Tests throughout Hospitalization: Therapy Orders & Screens 10/05/22 17:06 EKG REPEAT IN AM Comment: Oxygen Nasal Cannula 2 lpm Comment: Respiratory Therapy Consult ROUTINE Comment: Reason For Exam: 10/05/22 17:47 Respiratory Therapy Assessment DAILY Comment: 10/05/22 18:13 RT Screen per Nursing Assess ONCE Comment: Protocol Order Physician Instructions: Greater than 3 points order RT Admission Screen Reason For Exam: Triggered on Admission Diagnosis: Influenza, hypoxia, pneumonia left lung Diagnosis: Influenza, hypoxia, pneumonia left lung Pneumonia: Yes Home O2: No Asthma: Yes CHF: No Home CPAP/BIPAP: No Home Nebs/MDI: No Total Points: 7 Smoking Cessation Education ONCE Comment: Diagnosis: Influenza, hypoxia, pneumonia left lung Smoking Status: Current every day smoker How long have you smoked: 38 y.o. Do you dip or chew tobacco: No 10/07/22 09:32 PT Eval & Treat (MD Order) ONCE Reason for Eval:: weakness Diagnosis: EXAC COPD, INFLUENZA A 10/10/22 17:42 Respiratory MDI UD Comment: Diagnosis: EXAC COPD, INFLUENZA A Discharge Exam General Appearance: no apparent distress Neurologic Exam: alert, oriented x 3, cooperative, normal mood/affect Ears, Nose, Throat Exam: normal ENT inspection Respiratory Exam: diminished breath sounds Cardiovascular Exam: regular rate/rhythm Final Diagnosis/Problem List - Final Discharge Diagnosis/Problem (1) Acute exacerbation of chronic obstructive airways disease Status: Acute Code(s): J44.1 - CHRONIC OBSTRUCTIVE PULMONARY DISEASE W (ACUTE) EXACERBATION (2) Influenza A H1N1 infection Status: Resolved Code(s): J10.1 - FLU DUE TO OTH IDENT INFLUENZA VIRUS W OTH RESP MANIFEST (3) Hypoxia Status: Acute Code(s): R09.02 - HYPOXEMIA - Discharge Disposition: Home, Self-Care Condition: Good Prescriptions: New Lorazepam 0.5 mg [Ativan 0.5 MG] 0.5 mg PO DAILY PRN #15 tablet PRN Reason: Anxiety/Agitation Prednisone 10 mg [Deltasone 10 mg] 10 mg PO BIDWM #14 tablet Albuterol/Ipratropium 3ml Neb* [DUONEB 0.5-3 MG/3 ml Neb] 3 ml IH TID #90 Amlodipine Besylate 5 mg [Norvasc 5 mg] 5 mg PO QAM tablet Lisinopril 10 mg [Zestril 10 MG] 20 mg PO DAILY tablet Instructions: Flu, Adult (DC), Oxygen Therapy, Adult (DC), How to Use a Nebulizer, Adult Additional Instructions: WEAR 3L/NC AT ALL TIMES CALL [facility] AT [phone] WHEN YOU LEAVE [facility] SO THEY CAN MEET YOU AT YOUR HOME TO DELIVER YOUR CONCENTRATOR THEY [facility] AL[facility] S[facility] INTO [facility] Follow up with: BEATA MILIAN NP [Primary Care Provider] - 10/19/22 11:30 am Forms: Discharge Instructions
[2022-10-13] MEDS: Zestril 10 MG PO SCH (09:11)
[2022-10-13] MEDS: NORVASC 5 MG PO SCH (09:11)
[2022-10-13] MEDS: Klor Con PO SCH (09:11)
[2022-10-13] MEDS: Zithromax 500 MG/ 250 ML NaCl Premix 500 MG/250 ML IVPB IV SCH (09:12)
== END 2022-10-13 11:14 | disposition home or self-care (01) | DRG 192 ==
LOC: ED 13:25 → MED SURG 17:01 → OBSVTOIN 10-06 10:15
PROVIDERS: ADMIT Family Medicine; ATTEND Family Medicine
DX: J44.1 Chronic obstructive pulmonary disease with (acute) exacerbation (principal); J10.1 Influenza due to other identified influenza virus with other respiratory manifestations; R09.02 Hypoxemia; R00.0 Tachycardia, unspecified; I10 Essential (primary) hypertension; Z20.828 Contact with and (suspected) exposure to other viral communicable diseases; Z72.0 Tobacco use
CPT/HCPCS: 0241U; 36000; 36415; 36600; 71045; 71260; 80048; 80053; 82375; 82803; 83605; 83735; 83880; 84145; 84484; 85025; 85027; 85379; 86308; 87040; 87651; 93005; 93268; 94640; 94760; 94762; 96374; 97161; 97530; 99285; 99291; G0378; J0360; J0456; J0696; J1940; J2920; J2930; J7609; A9270-GY